=== PATIENT | female | born 1965 | race Caucasian/White ===

== ENCOUNTER → 2019-05-18 | Outpatient (CLI) | payer OTHER, SELFPAY ==
[2019-05-18 12:03] LABS: Absolute Lymphocyte Count 0.39 X10^3/ul (0.83-4.51); Absolute Neutrophil Count 0.9 X10^3/uL (2.0-7.7); Basophil# 0.01 X10^3/uL; Basophil% 0.6 % (0-1); Hematocrit 23.9 % (37-47); Hemoglobin 8.1 g/dl (12.0-15.0); Lymphocyte # 0.39 X10^3/ul (4.0); Lymphocyte % 24.2 % (19-41); Mean Corp Hgb Conc 33.9 g/gl (32-36); Mean Corpuscular Hgb 32.3 pg (27.0-32.0); Mean Corpuscular Volume 95.2 fL (81-99); Monocyte% 18.6 % (0-10); Neutrophil # 0.88 X10^3/uL (2.7-7.7); Neutrophil % 54.7 % (47-70); Platelet Count 10 K/mm3 (150-450); RBC Distribution Width CV 17.9 % (11.6-14.6); RBC Distribution Width SD 60.3 fl (35.1-43.9); Red Blood Count 2.51 M/mm3 (4.2-5.4); White Blood Count 1.6 K/mm3 (4.4-11.0)
[2019-05-18 12:04] LABS: Differential Indicated SCAN CRITERIA MET; POSITIVE COUNT YES; POSITIVE DIFFERENTIAL YES; POSITIVE MORPHOLOGY YES
[2019-05-18 12:08] LABS: ALB/GLOB Ratio 0.8 RATIO (0.9-2.4); AST(SGOT) 350 U/L (15-37); Alanine Aminotransfer ALT/SGPT 282 U/L (13-56); Albumin, Serum 2.7 g/dL (3.2-5.0); Alkaline Phosphatase 238 U/L (45-117); Anion Gap 6 (5-15); BUN 18 mg/dL (7-18); BUN/Creat Ratio 20.2 RATIO (10-20); Calcium,Total 8.2 mg/dL (8.5-10.1); Chloride 99 mmol/L (98-107); Creatinine, Serum 0.89 mg/dL (0.55-1.02); EST Glomerular Filtration Rate 70 mL/min (>60); Est Glom Filt Rate - Afr Amer 84 mL/min (>60); Globulin 3.2 g/dL (2.2-4.2); Glucose 113 mg/dL (74-106); Potassium 4.1 mmol/L (3.5-5.1); Protein, Total 5.9 g/dL (6.4-8.2); Sodium Level 135 mmol/L (136-145)
[2019-05-18 12:31] LABS: Platelet Estimate MKD DEC (ADEQ)
[2019-05-20 09:44] LABS: Pathologist Review Reviewed
== END | disposition home or self-care (01) ==
DX: C49.9 Malignant neoplasm of connective and soft tissue, unspecified (principal)
CPT/HCPCS: 36591; 80053; 85025; A4216

== ENCOUNTER → 2019-05-27 12:41 | Outpatient (CLI) | payer OTHER, SELFPAY ==
[2019-05-27 13:09] LABS: Absolute Lymphocyte Count 0.88 X10^3/ul (0.83-4.51); Hemoglobin 7.4 g/dl (12.0-15.0); Lymphocyte # 0.88 X10^3/ul (4.0); Lymphocyte % 36.2 % (19-41); Mean Corp Hgb Conc 33.6 g/gl (32-36); Mean Corpuscular Hgb 32.3 pg (27.0-32.0); Mean Corpuscular Volume 96.1 fL (81-99); Mean Platelet Vol. 11.4 fl (6.2-12.0); Monocyte# 0.53 X10^3/uL; Monocyte% 21.8 % (0-10); Neutrophil # 1.02 X10^3/uL (2.7-7.7); RBC Distribution Width SD 62.1 fl (35.1-43.9); Red Blood Count 2.29 M/mm3 (4.2-5.4); White Blood Count 2.4 K/mm3 (4.4-11.0)
[2019-05-27 13:18] LABS: AST(SGOT) 53 U/L (15-37); Alanine Aminotransfer ALT/SGPT 79 U/L (13-56); Albumin, Serum 3.4 g/dL (3.2-5.0); Alkaline Phosphatase 206 U/L (45-117); Anion Gap 4 (5-15); BUN 17 mg/dL (7-18); BUN/Creat Ratio 19.5 RATIO (10-20); Calcium,Total 8.6 mg/dL (8.5-10.1); Chloride 97 mmol/L (98-107); Creatinine, Serum 0.87 mg/dL (0.55-1.02); Differential Indicated SCAN CRITERIA MET; EST Glomerular Filtration Rate 72 mL/min (>60); Est Glom Filt Rate - Afr Amer 87 mL/min (>60); Globulin 3.3 g/dL (2.2-4.2); Glucose 96 mg/dL (74-106); POSITIVE COUNT YES; POSITIVE DIFFERENTIAL NO; POSITIVE MORPHOLOGY NO; Platelet Count 27 K/mm3 (150-450); Potassium 3.8 mmol/L (3.5-5.1); Protein, Total 6.7 g/dL (6.4-8.2); Sodium Level 132 mmol/L (136-145)
[2019-05-27 13:38] LABS: Hypochromasia 2+; Platelet Estimate MKD DEC (ADEQ)
[2019-05-30 12:43] LABS: Pathologist Review Reviewed
== END ==
DX: Z45.2 Encounter for adjustment and management of vascular access device (principal); C49.9 Malignant neoplasm of connective and soft tissue, unspecified
CPT/HCPCS: 36591; 80053; 85025; A4216

== ENCOUNTER → 2019-05-30 13:14 | Outpatient (CLI) | payer OTHER, SELFPAY ==
[2019-05-30 13:52] LABS: Absolute Lymphocyte Count 1.03 X10^3/ul (0.83-4.51); Absolute Neutrophil Count 0.7 X10^3/uL (2.0-7.7); Eosinophil# 0.01 X10^3/uL; Eosinophils% 0.5 % (0-5); Hemoglobin 7.1 g/dl (12.0-15.0); Lymphocyte # 1.03 X10^3/ul (4.0); Lymphocyte % 46.8 % (19-41); Mean Corp Hgb Conc 33.8 g/gl (32-36); Mean Corpuscular Hgb 32.7 pg (27.0-32.0); Mean Corpuscular Volume 96.8 fL (81-99); Mean Platelet Vol. 11.6 fl (6.2-12.0); Monocyte# 0.42 X10^3/uL; Monocyte% 19.1 % (0-10); Neutrophil # 0.73 X10^3/uL (2.7-7.7); Neutrophil % 33.1 % (47-70); RBC Distribution Width CV 19.8 % (11.6-14.6); RBC Distribution Width SD 65.9 fl (35.1-43.9); Red Blood Count 2.17 M/mm3 (4.2-5.4); White Blood Count 2.2 K/mm3 (4.4-11.0)
[2019-05-30 14:06] LABS: Platelet Count 43 K/mm3 (150-450)
[2019-05-30 14:07] LABS: AST(SGOT) 41 U/L (15-37); Alanine Aminotransfer ALT/SGPT 54 U/L (13-56); Albumin, Serum 3.5 g/dL (3.2-5.0); Alkaline Phosphatase 217 U/L (45-117); Anion Gap 6 (5-15); BUN 21 mg/dL (7-18); Calcium,Total 9.1 mg/dL (8.5-10.1); Chloride 97 mmol/L (98-107); Creatinine, Serum 0.96 mg/dL (0.55-1.02); Differential Indicated SCAN CRITERIA MET; EST Glomerular Filtration Rate 64 mL/min (>60); Est Glom Filt Rate - Afr Amer 78 mL/min (>60); Globulin 3.4 g/dL (2.2-4.2); Glucose 107 mg/dL (74-106); POSITIVE COUNT YES; POSITIVE DIFFERENTIAL YES; POSITIVE MORPHOLOGY YES; Potassium 3.7 mmol/L (3.5-5.1); Protein, Total 6.9 g/dL (6.4-8.2); Sodium Level 134 mmol/L (136-145)
[2019-06-01 10:08] LABS: Pathologist Review Reviewed
== END ==
DX: C49.9 Malignant neoplasm of connective and soft tissue, unspecified (principal)
CPT/HCPCS: 36591; 80053; 85025; A4216

== ENCOUNTER → 2019-06-06 08:40 | Outpatient (CLI) | payer OTHER, SELFPAY ==
[2019-06-06 09:20] LABS: Absolute Lymphocyte Count 0.85 X10^3/ul (0.83-4.51); Absolute Neutrophil Count 1.2 X10^3/uL (2.0-7.7); Basophil# 0.01 X10^3/uL; Basophil% 0.4 % (0-1); Eosinophil# 0.01 X10^3/uL; Eosinophils% 0.4 % (0-5); Hematocrit 23.7 % (37-47); Lymphocyte # 0.85 X10^3/ul (4.0); Lymphocyte % 32.9 % (19-41); Mean Corp Hgb Conc 33.8 g/gl (32-36); Mean Corpuscular Hgb 32.7 pg (27.0-32.0); Mean Corpuscular Volume 96.7 fL (81-99); Mean Platelet Vol. 10.7 fl (6.2-12.0); Monocyte# 0.51 X10^3/uL; Monocyte% 19.8 % (0-10); Neutrophil # 1.19 X10^3/uL (2.7-7.7); Neutrophil % 46.1 % (47-70); Platelet Count 102 K/mm3 (150-450); RBC Distribution Width CV 21.6 % (11.6-14.6); RBC Distribution Width SD 74.2 fl (35.1-43.9); Red Blood Count 2.45 M/mm3 (4.2-5.4); White Blood Count 2.6 K/mm3 (4.4-11.0)
[2019-06-06 09:21] LABS: Differential Indicated SCAN CRITERIA MET; POSITIVE COUNT NO; POSITIVE DIFFERENTIAL NO; POSITIVE MORPHOLOGY YES
[2019-06-06 17:00] LABS: Xtra Tube EP Lab EXTRA TUBE
== END ==
PROVIDERS: Family Provider Internal Medicine Hematology & Oncology; PCP Internal Medicine Hematology & Oncology; Referring Provider Internal Medicine Hematology & Oncology; Visit Provider Internal Medicine Hematology & Oncology
DX: C78.7 Secondary malignant neoplasm of liver and intrahepatic bile duct (principal); C49.9 Malignant neoplasm of connective and soft tissue, unspecified; D61.818 Other pancytopenia
CPT/HCPCS: 36591; 85025; A4216

== ENCOUNTER → 2019-06-13 10:45 | Outpatient (CLI) | payer OTHER, SELFPAY ==
[2019-06-13 11:45] LABS: Hematocrit 21.7 % (37-47); Hemoglobin 7.2 g/dl (12.0-15.0); Mean Corp Hgb Conc 33.2 g/gl (32-36); Mean Corpuscular Hgb 32.3 pg (27.0-32.0); Mean Corpuscular Volume 97.3 fL (81-99); Mean Platelet Vol. 11.5 fl (6.2-12.0); Platelet Count 111 K/mm3 (150-450); RBC Distribution Width CV 21.4 % (11.6-14.6); Red Blood Count 2.23 M/mm3 (4.2-5.4); White Blood Count 1.9 K/mm3 (4.4-11.0)
[2019-06-13 11:49] LABS: Differential Indicated MANUAL DIFF; POSITIVE COUNT NO; POSITIVE DIFFERENTIAL NO; POSITIVE MORPHOLOGY YES
[2019-06-13 11:52] LABS: ALB/GLOB Ratio 0.9 RATIO (0.9-2.4); AST(SGOT) 53 U/L (15-37); Alanine Aminotransfer ALT/SGPT 27 U/L (13-56); Albumin, Serum 3.2 g/dL (3.2-5.0); Alkaline Phosphatase 142 U/L (45-117); Anion Gap 10 (5-15); BUN 23 mg/dL (7-18); BUN/Creat Ratio 22.3 RATIO (10-20); Calcium,Total 8.2 mg/dL (8.5-10.1); Chloride 93 mmol/L (98-107); Creatinine, Serum 1.03 mg/dL (0.55-1.02); EST Glomerular Filtration Rate 59 mL/min (>60); Est Glom Filt Rate - Afr Amer 71 mL/min (>60); Globulin 3.5 g/dL (2.2-4.2); Glucose 128 mg/dL (74-106); Potassium 3.4 mmol/L (3.5-5.1); Protein, Total 6.7 g/dL (6.4-8.2); Sodium Level 131 mmol/L (136-145)
[2019-06-13 12:18] LABS: Lymphocyte 23 % (19-41); Monocyte 4 % (0-10); Neutrophil-Segmented 73 % (47-70); Total Cells Counted 100 (MANUAL DIFF)
[2019-06-13 12:19] LABS: Anisocytosis 1+; Platelet Estimate SLT DEC (ADEQ); Red Cell Morphology N CHROM NORMAL (NORM C&C)
[2019-06-13 12:20] LABS: Absolute Lymphocyte Count 0.44 X10^3/ul (0.83-4.51); Absolute Neutrophil Count 1.4 X10^3/uL (2.0-7.7); Lymphocyte # 0.44 X10^3/ul (4.0)
[2019-06-13 19:32] LABS: Xtra Tube EP Lab EXTRA TUBE
[2019-06-14 10:25] LABS: Pathologist Review Reviewed
== END ==
PROVIDERS: Family Provider Internal Medicine Hematology & Oncology; PCP Internal Medicine Hematology & Oncology; Referring Provider Internal Medicine Hematology & Oncology; Visit Provider Internal Medicine Hematology & Oncology
DX: C78.7 Secondary malignant neoplasm of liver and intrahepatic bile duct (principal); C49.9 Malignant neoplasm of connective and soft tissue, unspecified; D61.818 Other pancytopenia
CPT/HCPCS: 36591; 80053; 85025

== ENCOUNTER → 2019-06-20 13:04 | Outpatient (CLI) | payer OTHER, SELFPAY ==
[2019-06-20 13:51] LABS: Absolute Lymphocyte Count 0.86 X10^3/uL (0.83-4.51); Absolute Nucleated RBC Count 0.06 10^3/uL (0-5); Basophil# 0.01 X10^3/uL; Basophil% 0.6 % (0-1); Hematocrit 25.4 % (37-47); Hemoglobin 8.2 g/dL (12.0-15.0); Lymphocyte # 0.86 X10^3/ul (4.0); Lymphocyte % 54.1 % (19-41); Mean Corp Hgb Conc 32.3 g/dL (32-36); Mean Corpuscular Hgb 31.9 pg (27.0-32.0); Mean Corpuscular Volume 98.8 fL (81-99); Mean Platelet Vol. 11.2 fl (6.2-12.0); Monocyte# 0.53 X10^3/uL; Monocyte% 33.3 % (0-10); Neutrophil # 0.17 X10^3/uL (2.7-7.7); Neutrophil % 10.7 % (47-70); POSITIVE DIFFERENTIAL YES; POSITIVE MORPHOLOGY YES; Platelet Count 217 K/mm3 (150-450); RBC Distribution Width CV 24.1 % (11.6-14.6); RBC Distribution Width SD 82.4 fl (35.1-43.9); Red Blood Count 2.57 M/mm3 (4.2-5.4); White Blood Count 1.6 K/mm3 (4.4-11.0)
[2019-06-20 13:55] LABS: NRBC Flagged by Analyzer 3.8 % (0-5)
[2019-06-20 14:07] LABS: ALB/GLOB Ratio 0.9 RATIO (0.9-2.4); AST(SGOT) 34 U/L (15-37); Alanine Aminotransfer ALT/SGPT 21 U/L (13-56); Albumin, Serum 3.1 g/dL (3.2-5.0); Alkaline Phosphatase 122 U/L (45-117); Anion Gap 5 (5-15); BUN 16 mg/dL (7-18); BUN/Creat Ratio 16.3 RATIO (10-20); Calcium,Total 8.5 mg/dL (8.5-10.1); Chloride 101 mmol/L (98-107); Creatinine, Serum 0.98 mg/dL (0.55-1.02); EST Glomerular Filtration Rate 62 mL/min (>60); Est Glom Filt Rate - Afr Amer 75 mL/min (>60); Globulin 3.5 g/dL (2.2-4.2); Glucose 103 mg/dL (74-106); Potassium 3.7 mmol/L (3.5-5.1); Protein, Total 6.6 g/dL (6.4-8.2); Sodium Level 136 mmol/L (136-145)
[2019-06-21 07:43] LABS: Differential Indicated SCAN CRITERIA MET
[2019-06-21 11:49] LABS: Pathologist Review Reviewed
== END ==
PROVIDERS: Family Provider Internal Medicine Hematology & Oncology; PCP Internal Medicine Hematology & Oncology; Referring Provider Internal Medicine Hematology & Oncology; Visit Provider Internal Medicine Hematology & Oncology
DX: Z45.2 Encounter for adjustment and management of vascular access device (principal); C78.7 Secondary malignant neoplasm of liver and intrahepatic bile duct; C49.9 Malignant neoplasm of connective and soft tissue, unspecified; D61.818 Other pancytopenia
CPT/HCPCS: 36591; 80053; 85025; A4216

== ENCOUNTER → 2019-06-27 12:41 | Outpatient (CLI) | payer OTHER, SELFPAY ==
[2019-06-27 12:58] LABS: Absolute Lymphocyte Count 1.28 X10^3/uL (0.83-4.51); Absolute Neutrophil Count 4.3 X10^3/uL (2.0-7.7); Basophil# 0.06 X10^3/uL; Basophil% 0.9 % (0-1); Hematocrit 28.8 % (37-47); Hemoglobin 9.2 g/dL (12.0-15.0); Lymphocyte # 1.28 X10^3/ul (4.0); Lymphocyte % 19.1 % (19-41); Mean Corp Hgb Conc 31.9 g/dL (32-36); Mean Corpuscular Hgb 31.9 pg (27.0-32.0); Mean Platelet Vol. 10.6 fl (6.2-12.0); Monocyte# 0.91 X10^3/uL; Monocyte% 13.6 % (0-10); NRBC Flagged by Analyzer 0.6 % (0-5); Neutrophil # 4.31 X10^3/uL (2.7-7.7); Neutrophil % 64.3 % (47-70); POSITIVE MORPHOLOGY YES; Platelet Count 197 K/mm3 (150-450); RBC Distribution Width CV 23.9 % (11.6-14.6); RBC Distribution Width SD 84.2 fl (35.1-43.9); Red Blood Count 2.88 M/mm3 (4.2-5.4); White Blood Count 6.7 K/mm3 (4.4-11.0)
[2019-06-27 13:10] LABS: Differential Indicated SCAN CRITERIA MET
[2019-06-27 13:58] LABS: Anisocytosis 2+; Macrocytosis 1+; Polychromasia RARE
[2019-06-27 13:59] LABS: Platelet Estimate ADEQUATE (ADEQ)
== END ==
PROVIDERS: Family Provider Internal Medicine Hematology & Oncology; PCP Internal Medicine Hematology & Oncology; Referring Provider Internal Medicine Hematology & Oncology; Visit Provider Internal Medicine Hematology & Oncology
DX: Z45.2 Encounter for adjustment and management of vascular access device (principal); C78.7 Secondary malignant neoplasm of liver and intrahepatic bile duct; C49.9 Malignant neoplasm of connective and soft tissue, unspecified; D61.818 Other pancytopenia
CPT/HCPCS: 36415; 36591; 85025; A4216